=== PATIENT | male | born 2000 | race Two or more races ===

== ENCOUNTER 2024-01-08 09:59 | Emergency (ER) | payer OTHER ==
[2024-01-08] MEDS: LIDOCAINE 1% 10 ML VIAL SQ ONE (10:55)
[2024-01-08] MEDS: BACITRACIN 0.9 GM PACKET OINTMENT TP ONE (10:55)
[2024-01-08] MEDS: SULFAMETHOX/TRIMETH DS 800-160 MG/TABLET PO ONE (10:55)
[2024-01-08] MEDS: CEPHALEXIN MONOHYDRATE 500 MG CAPSULE PO ONE (10:55)
[2024-01-08] MEDS ORDERED: CEPH-558 PO (11:15)
[2024-01-08] MEDS ORDERED: SULF-261 PO (11:15)
[2024-01-08 11:18] VITALS: BP 133/103; PULSE 59; RESP 15; TEMP 98.4
== END 2024-01-08 11:25 | disposition home or self-care (01) ==
LOC: EMS 09:59
DX: L02.412 Cutaneous abscess of left axilla (principal)
CPT/HCPCS: 99283; 10060; J3490